=== PATIENT | female | born 1995 | race Caucasian/White ===

== ENCOUNTER 2019-09-09 14:10 | Emergency (ER) | payer BC ==
--- NOTE | 2019-09-09 14:31 | EDM.PDOC ---
ED HPI GENERAL MEDICAL PROBLEM - General Chief Complaint: [employer]IAN Problem Stated Complaint: VAGINAL BLEEDING/ 15 WKS Time Seen by Provider: 09/09/19 14:13 Source of Information: Reports: Patient History Limitations: Reports: No Limitations - History of Present Illness INITIAL COMMENTS - FREE TEXT/NARRATIVE: This is a 23-year-old female who presents with vaginal bleeding. Patient is 15 weeks 1 para 1 AB 1. Patient has no cramping just bleeding approximately half hour ago. Patient presents with bloody blue jeans and no pain Onset: Today Duration: Minutes: Severity: Mild Improves with: Reports: None Worsens with: Reports: None Associated Symptoms: Reports: No Other Symptoms - Related Data Allergies Allergy/AdvReac Type Severity Reaction Status Date / Time codeine Allergy Airway Verified 09/09/19 14:13 Tightness hydrocodone Allergy Airway Verified 09/09/19 14:13 Tightness oxycodone Allergy Airway Verified 09/09/19 14:13 Tightness Home Meds: Home Meds Aspirin [Halfprin] 81 mg PO DAILY 09/09/19 [History] Levothyroxine 25 mcg PO DAILY 09/09/19 [History] Pnv No.95/Ferrous Fum/Folic AC [ Caplet] 1 each PO DAILY 09/09/19 [ History] Past Medical History Cardiovascular History: Reports: Hypertension 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 right one removed because of tubal - Infectious Disease History Infectious Disease History: Reports: None Social & Family History - Tobacco Use Smoking Status *Q: Former Smoker Used Tobacco, but Quit: Yes Month/Year Tobacco Last Used: 2016 - Caffeine Use Caffeine Use: Reports: Coffee - Recreational Drug Use Recreational Drug Use: No ED ROS GENERAL - Review of Systems Review Of Systems: See Below Constitutional: Reports: No Symptoms HEENT: Reports: No Symptoms Respiratory: Reports: No Symptoms Cardiovascular: Reports: No Symptoms Endocrine: Reports: No Symptoms GI/Abdominal: Reports: No Symptoms : Reports: No Symptoms Musculoskeletal: Reports: No Symptoms Skin: Reports: No Symptoms Neurological: Reports: No Symptoms Psychiatric: Reports: No Symptoms Hematologic/Lymphatic: Reports: No Symptoms ED EXAM - Physical Exam Exam: See Below General Appearance: Alert, WD/WN, No Apparent Distress Eye Exam: Bilateral Eye: Normal Fundi, Normal Inspection Ears: Normal External Exam, Normal Canal Nose: Normal Inspection Throat/Mouth: Normal Inspection Head: Atraumatic Neck: Normal Inspection Respiratory/Chest: No Respiratory Distress, Lungs Clear, Normal Breath Sounds Cardiovascular: Normal Peripheral Pulses, Regular Rate, Rhythm GI/Abdominal Exam: Normal Bowel Sounds, Non-Tender (Female) Exam: Deferred for Placenta Previa (23-year-old female 3 para 1 approximately 15 weeks presents with painless vaginal bleeding. Patient went to ultrasound found to have a 15-week fetus with good heart rate and no abnormality. Patient will follow-up with her primary care physician bleeding has stopped at this time and patient has a quantitative hCG for planning. Patient is O+ so therefore she does not need RhoGam) Back Exam: Normal Inspection, Full Range of Motion Extremities: Normal Inspection, Normal Range of Motion Neurological: Alert, Oriented, CN II-XII Intact, Normal Reflexes, No Motor/ Sensory Deficits Psychiatric: Normal Affect, Normal Mood Skin Exam: Warm, Dry, Intact Lymphatic: No Adenopathy Course - Vital Signs Last Recorded V/S: Last Vital Signs Temp 97.0 F 09/09/19 14:14 Pulse 81 09/09/19 14:14 Resp 20 09/09/19 14:14 BP 118/88 09/09/19 14:14 Pulse Ox 98 09/09/19 14:14 - Orders/Labs/Meds Orders: Active Orders 24 hr Category Date Time Status HCG QUANTITATIVE [CHEM] Stat Lab 09/09/19 14:30 Received Labs: Laboratory Tests 09/09/19 09/09/19 Range/Units 14:30 14:30 WBC 12.02 H (4.0-11.0) K/uL RBC 4.35 (4.30-5.90) M/uL Hgb 12.3 (12.0-16.0) g/dL Hct 37.9 (36.0-46.0) % MCV 87.1 (80.0-98.0) fL MCH 28.3 (27.0-32.0) pg MCHC 32.5 (31.0-37.0) g/dL RDW Std Deviation 42.6 (28.0-62.0) fl RDW Coeff of Teofilo 13 (11.0-15.0) % Plt Count 246 (150-400) K/uL MPV 10.40 (7.40-12.00) fL Neut % (Auto) 64.3 (48.0-80.0) % Lymph % (Auto) 29.8 (16.0-40.0) % [place] % (Auto) 4.4 (0.0-15.0) % Eos % (Auto) 1.4 (0.0-7.0) % Baso % (Auto) 0.1 (0.0-1.5) % Neut # (Auto) 7.7 H (1.4-5.7) K/uL Lymph # (Auto) 3.6 H (0.6-2.4) K/uL [place] # (Auto) 0.5 (0.0-0.8) K/uL Eos # (Auto) 0.2 (0.0-0.7) K/uL Baso # (Auto) 0.0 (0.0-0.1) K/uL Nucleated RBC % 0.0 /100WBC Nucleated RBCs # 0 K/uL Sodium 140 (136-145) mmol/L Potassium 3.6 (3.5-5.1) mmol/L Chloride 105 (98-107) mmol/L Carbon Dioxide 23.9 (21.0-32.0) mmol/L BUN 8 (7.0-18.0) mg/dL Creatinine 0.6 (0.6-1.0) mg/dL Est Cr Clr Drug Dosing 120.63 mL/min Estimated GFR (MDRD) > 60.0 ml/min Glucose 88 (74-106) mg/dL Calcium 9.3 (8.5-10.1) mg/dL Total Bilirubin 0.2 (0.2-1.0) mg/dL AST 12 L (15-37) IU/L ALT 18 (14-63) IU/L Alkaline Phosphatase 45 L (46-116) U/L Total Protein 7.1 (6.4-8.2) g/dL Albumin 3.2 L (3.4-5.0) g/dL Globulin 3.9 (2.6-4.0) g/dL Albumin/Globulin Ratio 0.8 L (0.9-1.6) Departure - Departure Time of Disposition: 17:29 Disposition: Home, Self-Care 01 Condition: Good Clinical Impression: Threatened - Discharge Information Instructions: Threatened Miscarriage, [id number] Forms: ED Department Discharge Additional Instructions: Patient to follow-up with her [employer] TECHNICIAN. Return for any excessive bleeding or pain Patient To go on pelvic rest Sepsis Event Note - Evaluation Sepsis Screening Result: No Definite Risk - Focused Exam Vital Signs: Vital Signs Temp Pulse Resp BP Pulse Ox 09/09/19 14:14 97.0 F 81 20 118/88 98 Date Exam was Performed: 09/09/19 Time Exam was Performed: 17:25 - My Orders Last 24 Hours: My Active Orders 09/09/19 14:30 HCG QUANTITATIVE [CHEM] Stat - Assessment/Plan Last 24 Hours: My Active Orders 09/09/19 14:30 HCG QUANTITATIVE [CHEM] Stat
[2019-09-09 15:06] LABS: BLOOD UREA NITROGEN,BUN 8 mg/dL (7.0-18.0); CARBON DIOXIDE,CO2 23.9 mmol/L (21.0-32.0); CHLORIDE,CL 105 mmol/L (98-107); GLUCOSE RANDOM 88 mg/dL (74-106); POTASSIUM,K 3.6 mmol/L (3.5-5.1); SODIUM,NA 140 mmol/L (136-145)
--- NOTE | 2019-09-09 17:03 | US ---
Obstetrical ultrasound: Multiple real-time images were obtained transabdominally. Comparison: No previous study for current . Dates: Current ultrasound: [facility] 03/02/20, gestational age 15 weeks 0 days Single intrauterine fetus is seen. Amniotic fluid volume is normal. Minimal subchorionic hemorrhage is appreciated. Measurements: BPD: 2.81 cm - 15 weeks 0 days Head circumference: 10.76 cm - 15 weeks 1 day Abdominal circumference: 9.26 cm - 15 weeks 3 days Femur length: 1.66 cm - 14 weeks 6 days Estimated weight: 117 g (0 lbs. 4 oz.) Heart rate: 142 bpm Impression: 1. Single intrauterine fetus. Dates as noted above. 2. Minimal subchorionic hemorrhage is noted. 3. No other complicating process is seen by ultrasound. Diagnostic code #3 This report was dictated in MDT
== END 2019-09-09 18:06 | disposition home or self-care (01) ==
LOC: MW.ED 14:10
DX: O20.0 Threatened abortion (principal); I10 Essential (primary) hypertension; Z87.891 Personal history of nicotine dependence; Z88.5 Allergy status to narcotic agent; Z79.82 Long term (current) use of aspirin; Z79.899 Other long term (current) drug therapy; Z3A.15 15 weeks gestation of pregnancy
CPT/HCPCS: 36415; 76801; 76801-26; 80053; 84702; 85025; 99284-25